=== PATIENT | female | born 1990 | race Caucasian/White ===

== ENCOUNTER 2018-01-30 12:36 | Emergency (ER) | payer OTHER ==
[2018-01-30 14:15] LABS: URINE BLOOD (Dip) POC Trace-intact (NEGATIVE); URINE GLUCOSE (Dip) POC Negative (NEGATIVE); URINE KETONES (Dip) POC Negative (NEGATIVE); URINE LEUKOCYTE EST (Dip) POC Negative (NEGATIVE); URINE NITRITE (Dip) POC Negative (NEGATIVE); URINE TOTAL PROTEIN POC Negative (NEGATIVE)
[2018-01-30] MEDS: KETOROLAC 30 MG INJ IM (14:25)
== END 2018-01-30 15:31 | disposition home or self-care (01) ==
LOC: FTE 12:36
DX: R51 Headache (principal)
CPT/HCPCS: 81003; 81025; 96372; 99284-25